=== PATIENT | female | born 1985 ===

== ENCOUNTER 2023-05-07 08:11 | Outpatient (CLI) | payer OTHER | END 2023-05-07 08:36 | disposition home or self-care (01) | LOC: PRENATAL 08:11 | PROVIDERS: ATTEND Obstetrics & Gynecology Maternal & Fetal Medicine | DX: O35.9XX0 Maternal care for (suspected) fetal abnormality and damage, unspecified, not applicable or unspecified (principal); O35.3XX0 Maternal care for (suspected) damage to fetus from viral disease in mother, not applicable or unspecified; O09.529 Supervision of elderly multigravida, unspecified trimester; O44.00 Complete placenta previa NOS or without hemorrhage, unspecified trimester; Z3A.20 20 weeks gestation of pregnancy ==

== ENCOUNTER 2023-06-15 15:04 | Outpatient (CLI) | payer OTHER | END 2023-06-15 15:05 | disposition home or self-care (01) | LOC: PRENATAL 15:04 | PROVIDERS: ATTEND Obstetrics & Gynecology Maternal & Fetal Medicine | DX: O26.849 Uterine size-date discrepancy, unspecified trimester (principal); O09.529 Supervision of elderly multigravida, unspecified trimester; Z3A.26 26 weeks gestation of pregnancy ==

== ENCOUNTER 2023-08-02 08:54 | Outpatient (CLI) | payer OTHER | END 2023-08-02 08:55 | disposition home or self-care (01) | LOC: PRENATAL 08:54 | PROVIDERS: ATTEND Obstetrics & Gynecology Maternal & Fetal Medicine | DX: O26.849 Uterine size-date discrepancy, unspecified trimester (principal); O36.8199 Decreased fetal movements, unspecified trimester, other fetus; O09.529 Supervision of elderly multigravida, unspecified trimester; Z3A.33 33 weeks gestation of pregnancy ==

== ENCOUNTER 2023-08-29 14:07 | Outpatient (CLI) | payer OTHER ==
[2023-08-29 14:58] LABS: PH,URINE 6.5 (5.0-8.0); URINE APPEARANCE Clear; URINE BACTERIA 760.9 uL (0.0-1933); URINE BILIRRUBIN Negative (NEGATIVE); URINE BLOOD Negative; URINE COLOR Yellow; URINE GLUCOSE Negative (NEGATIVE); URINE LEUKOCYTE Negative; URINE NITRATE Negative; URINE PROTEIN Negative (NEGATIVE); URINE RBC 2.4 uL (0.0-20.8); URINE UROBILINOGEN 0.2 E.U./dl; URINE WBC 11.1 uL (0.0-23.2)
[2023-08-29 15:01] LABS: HEMATOCRIT 31.1 % (36.0-45.00); HEMOGLOBIN 11.1 g/dL (12.0-15.00); MEAN CELL VOLUME 82.9 fL (80.00-100.00); MEAN CORPUSCULAR HEMOGLOBIN 29.6 pg (27.00-32.0); MEAN CORPUSCULAR HGB CONC 35.7 g/dl (32.0-36.0); PLATELET COUNT 226 K/uL (150-450); RED BLOOD COUNT 3.75 M/uL (4.00-6.00); RED CELL DISTRIBUTION WIDTH 13.7 % (11.5-14.5)
[2023-08-29 15:38] LABS: ALBUMIN 2.9 gm/dL (3.4-5.0); BILIRUBIN TOTAL 0.28 mg/dL (0.3-1.2); CALCIUM 9.1 mg/dL (8.5-10.1); CREATININE SERUM 0.51 mg/dL (0.55-1.02); GFR 137.23; GLOBULINA 3.8 G/DL (2.4-3.5); POTASSIUM 3.57 mEq/L (3.5-5.1); TOTAL PROTEIN 6.7 gm/dL (6.4-8.2)
[2023-08-29 16:14] LABS: INR 0.97; PARTIAL THROMBOPLASTIN TIME 29.3 SECONDS (22.0-34.0); PROTHROMBIN TIME 10.2 SECONDS (9.0-11.5)
[2023-08-30 17:38] LABS: URINE PROT QUANT 24HR 11.4 MG/DL
[2023-08-30 18:01] LABS: URINE PROT QUANT 24 HR 296.4 MG/24HR (42-225)
[2023-08-30 18:02] LABS: CREATINE CLEARANCE 271.7 ML/MIN (97-137); CREATININE SERUM 0.49 mg/dL (0.6-1.0)
[2023-08-30] MEDS ORDERED: CEFAZOLIN SODIUM 1,000 MG VIAL IV ONE (19:15)
== END 2023-08-30 19:36 | disposition home or self-care (01) ==
LOC: OBS/DEL 14:07
PROVIDERS: ATTEND Student in an Organized Health Care Education/Training Program
DX: O13.3 Gestational [pregnancy-induced] hypertension without significant proteinuria, third trimester (principal); Z3A.36 36 weeks gestation of pregnancy

== ENCOUNTER 2023-09-03 12:48 | Inpatient (IN) | payer OTHER ==
[~2023-09-03] VITALS: Ht 175.3 cm; Wt 106.6 kg
[2023-09-03] MEDS ORDERED: AMPICILLIN SODIUM 2,000 MG VIAL ONE (13:29)
[2023-09-03 14:26] LABS: HEMATOCRIT 31.4 % (36.0-45.00); HEMOGLOBIN 11.4 g/dL (12.0-15.00); MEAN CELL VOLUME 83.2 fL (80.00-100.00); MEAN CORPUSCULAR HEMOGLOBIN 30.2 pg (27.00-32.0); MEAN CORPUSCULAR HGB CONC 36.3 g/dl (32.0-36.0); PLATELET COUNT 221 K/uL (150-450); RED BLOOD COUNT 3.78 M/uL (4.00-6.00); RED CELL DISTRIBUTION WIDTH 13.9 % (11.5-14.5)
[2023-09-03 14:27] LABS: URINE APPEARANCE Clear; URINE BILIRRUBIN Negative (NEGATIVE); URINE BLOOD Negative; URINE COLOR Yellow; URINE GLUCOSE Negative (NEGATIVE); URINE LEUKOCYTE Negative; URINE NITRATE Negative; URINE PROTEIN Trace (NEGATIVE); URINE UROBILINOGEN 0.2 E.U./dl
[2023-09-03 14:45] LABS: INR 0.98; PARTIAL THROMBOPLASTIN TIME 29.7 SECONDS (22.0-34.0)
[2023-09-03 14:46] LABS: URINE BACTERIA 2767.9 uL (0.0-1933); URINE EPITHELIAL CELLS 25.3 uL (0.0-38.8); URINE RBC 13.6 uL (0.0-20.8); URINE WBC 36.1 uL (0.0-23.2)
[2023-09-03 14:49] LABS: PROTHROMBIN TIME 10.3 SECONDS (9.0-11.5)
[2023-09-03] MEDS ORDERED: AMPICILLIN SODIUM 2,000 MG VIAL IV ONE (15:00)
[2023-09-03 15:02] LABS: ALBUMIN 2.9 gm/dL (3.4-5.0); BILIRUBIN TOTAL 0.25 mg/dL (0.3-1.2); CALCIUM 9.1 mg/dL (8.5-10.1); CREATININE SERUM 0.56 mg/dL (0.55-1.02); GFR 123.19; GLOBULINA 3.6 G/DL (2.4-3.5); POTASSIUM 3.63 mEq/L (3.5-5.1); TOTAL PROTEIN 6.5 gm/dL (6.4-8.2); URIC ACID 4.6 mg/dL (2.5-7.5)
[2023-09-03] MEDS ORDERED: MISOPROSTOL 25 MCG TABLET ONE (15:51)
[2023-09-03] MEDS ORDERED: MISOPROSTOL 25 MCG TABLET VAG ONE (16:30)
[2023-09-03] MEDS ORDERED: MISOPROSTOL 25 MCG/4 ML GEL.W.APPL VAG ONE (20:45)
[2023-09-03] MEDS ORDERED: AMPICILLIN SODIUM 1,000 MG VIAL IV SCH (21:00)
[2023-09-04] MEDS ORDERED: MORPHINE SULFATE 4 MG/ML VIAL IV ONE (02:45)
[2023-09-04] MEDS ORDERED: MISOPROSTOL 25 MCG/4 ML GEL.W.APPL VAG ONE ×2 (11:30→11:45)
[2023-09-04] MEDS ORDERED: PRENATAL TABLE1 EAC1 PO (13:46)
[2023-09-04] MEDS ORDERED: OXYTOCIN 500 ML IV SCH (14:15)
[2023-09-04] MEDS ORDERED: CEFAZOLIN SODIUM 1,000 MG VIAL IV ONE (22:00)
[2023-09-04] MEDS ORDERED: ERYTHROMYCIN BASE 3.5 GM OINT...G. OP ONE (22:51)
[2023-09-04] MEDS ORDERED: OXYTOCIN 10 UNITS/ML VIAL ONE (22:51)
[2023-09-04] MEDS ORDERED: MEPERIDINE HCL/PF 25 MG/ML VIAL IV PRN (23:45)
[2023-09-04] MEDS ORDERED: PROMETHAZINE HCL 25 MG/ML AMPUL IV PRN (23:45)
[2023-09-04] MEDS ORDERED: KETOROLAC TROMETHAMINE 30 MG VIAL IV PRN (23:45)
[2023-09-04] MEDS ORDERED: OXYTOCIN 1,000 ML IV SCH (23:45)
[2023-09-05] MEDS ORDERED: OXYTOCIN 10 UNITS/ML VIAL IV ONE (00:15)
[2023-09-05] MEDS ORDERED: ERYTHROMYCIN BASE 1 GM TUBE OP ONE (00:15)
[2023-09-05] MEDS ORDERED: ONDANSETRON HCL 2 MG/ML VIAL ONE (01:50)
[2023-09-05] MEDS ORDERED: AMPICILLIN SODIUM 1,000 MG VIAL ONE (02:07)
[2023-09-05 05:28] LABS: HEMATOCRIT 31.4 % (36.0-45.00); MEAN CELL VOLUME 82.9 fL (80.00-100.00); MEAN CORPUSCULAR HEMOGLOBIN 28.9 pg (27.00-32.0); MEAN CORPUSCULAR HGB CONC 34.9 g/dl (32.0-36.0); PLATELET COUNT 194 K/uL (150-450); RED BLOOD COUNT 3.79 M/uL (4.00-6.00); RED CELL DISTRIBUTION WIDTH 13.6 % (11.5-14.5)
[2023-09-05] MEDS ORDERED: IBUprofen 800 MG TABLET PO PRN (09:00)
[2023-09-05] MEDS ORDERED: OxyCODONE HCL/APAP UD (PERCOCET) PO PRN (09:00)
[2023-09-05] MEDS ORDERED: SIMETHICONE 125 MG CAPSULE PO SCH (09:00)
[2023-09-05] MEDS ORDERED: DOCUSATE SODIUM 100MG CAP PO SCH (09:00)
== END 2023-09-07 15:39 | disposition home or self-care (01) | DRG 788 ==
LOC: LDR 12:48 → OB/GYN 12:48 → O/R 09-04 22:22 → OB/GYN 09-04 23:37
PROVIDERS: Student in an Organized Health Care Education/Training Program; ADMIT Obstetrics & Gynecology; ATTEND Obstetrics & Gynecology
PROC: 3E0P7VZ Introduction of Hormone into Female Reproductive, Via Natural or Artificial Opening (ICD-10-PCS; 2023-09-03)
PROC: 4A1HXCZ Monitoring of Products of Conception, Cardiac Rate, External Approach (ICD-10-PCS; 2023-09-03)
PROC: 3E033VJ Introduction of Other Hormone into Peripheral Vein, Percutaneous Approach (ICD-10-PCS; 2023-09-04)
PROC: 10D00Z1 Extraction of Products of Conception, Low, Open Approach (ICD-10-PCS; principal; 2023-09-04 23:00)
DX: O62.1 Secondary uterine inertia (principal); O13.4 Gestational [pregnancy-induced] hypertension without significant proteinuria, complicating childbirth; O24.420 Gestational diabetes mellitus in childbirth, diet controlled; Z3A.37 37 weeks gestation of pregnancy; Z37.0 Single live birth; Z20.822 Contact with and (suspected) exposure to COVID-19